=== PATIENT | female | born 1940 | race Caucasian/White ===

== ENCOUNTER 2017-06-27 02:51 | Emergency (ER) | payer MEDICARE, OTHER ==
[2017-06-27] MEDS: HYDROCODONE/APAP (5/325) TAB PO (04:23)
[2017-06-27] MEDS: ONDANSETRON (ODT) 4 MG TAB ODT (04:23)
[2017-06-27 04:35] LABS: URINE BLOOD (Dip) POC Negative (NEGATIVE); URINE KETONES (Dip) POC 1+ (NEGATIVE); URINE LEUKOCYTE EST (Dip) POC 1+ (NEGATIVE); URINE NITRITE (Dip) POC Negative (NEGATIVE); URINE TOTAL PROTEIN POC Trace (NEGATIVE)
[2017-06-27 05:16] LABS: ADD MAN DIFF? NO
[2017-06-27 05:18] LABS: BASOPHILS % 0.1 % (0.0-2.0); HEMATOCRIT 31.9 % (37.0-47.0); HEMOGLOBIN 11.3 g/dl (12.0-16.0); MEAN CORPUSCULAR HGB CONC 35.4 g/dl (32.0-37.0); MEAN CORPUSCULAR VOLUME 90.4 fl (82.0-101.0); MONOCYTE # 0.1 10^3/ul (0.3-0.9); MONOCYTES % 1.2 % (0.0-11.0); NEUTROPHIL # 10.9 10^3/ul (1.6-7.5); NEUTROPHILS % 90.4 % (39.0-77.0); PLATELET COUNT 334 10^3/UL (140-415); RED BLOOD COUNT 3.53 10^6/ul (4.20-5.40); RED CELL DISTRIBUTION WIDTH 12.6 % (11.5-14.5)
[2017-06-27 05:18] LABS: WHITE BLOOD COUNT 12.1 10^3/ul (4.8-10.8)
[2017-06-27 05:41] LABS: ALANINE AMINOTRANSFERASE 31 IU/L (13-69); ALBUMIN 3.7 g/dl (3.3-4.9); ALBUMIN/GLOBULIN RATIO 1.19; ALKALINE PHOSPHATASE 83 IU/L (42-121); ANION GAP 17 (8-16); ASPARTATE AMINO TRANSFERASE 24 IU/L (15-46); BILIRUBIN,INDIRECT 0.2 mg/dl (0-1.1); BILIRUBIN,TOTAL 0.2 mg/dl (0.2-1.3); BLOOD UREA NITROGEN 22 mg/dl (7-20); CALCIUM 9.1 mg/dl (8.4-10.2); CARBON DIOXIDE 23 mmol/L (21-31); CHLORIDE 91 mmol/L (97-110); CREATININE 0.77 mg/dl (0.44-1.00); GLUCOSE 258 mg/dl (70-220); LIPASE 90 U/L (23-300); POTASSIUM 4.7 mmol/L (3.5-5.1); SODIUM 126 mmol/L (135-144); TOTAL PROTEIN 6.8 g/dl (6.1-8.1)
== END 2017-06-27 06:00 | disposition home or self-care (01) ==
LOC: E/R 02:51
DX: N39.0 Urinary tract infection, site not specified (principal); M25.572 Pain in left ankle and joints of left foot; D64.9 Anemia, unspecified; I10 Essential (primary) hypertension; E11.9 Type 2 diabetes mellitus without complications; Z79.84 Long term (current) use of oral hypoglycemic drugs
CPT/HCPCS: 36415; 80053; 81003; 83690; 85025; 93971; 99284-25

== ENCOUNTER 2017-10-27 16:52 | Emergency (ER) | payer SELFPAY, OTHER, MEDICARE | END 2017-10-27 19:32 | disposition left against medical advice (07) | LOC: FTE 16:52 | DX: Z53.21 Procedure and treatment not carried out due to patient leaving prior to being seen by health care provider (principal) ==

== ENCOUNTER 2018-10-11 03:52 | Observation (INO) | payer MEDICARE, OTHER ==
[2018-10-11 04:25] LABS: ADD MAN DIFF? NO
[2018-10-11 04:28] LABS: WHITE BLOOD COUNT 8.3 10^3/ul (4.8-10.8)
[2018-10-11 04:28] LABS: BASOPHIL # 0.1 10^3/ul (0.0-0.1); BASOPHILS % 0.6 % (0.0-2.0); EOSINOPHILS # 0.2 10^3/ul (0.0-0.5); EOSINOPHILS % 2.9 % (0.0-7.0); HEMATOCRIT 34.8 % (37.0-47.0); HEMOGLOBIN 11.7 g/dl (12.0-16.0); LYMPHOCYTES # 4.3 10^3/ul (0.8-2.9); LYMPHOCYTES % 51.3 % (15.0-51.0); MEAN CORPUSCULAR HEMOGLOBIN 31.3 pg (29.0-33.0); MEAN CORPUSCULAR HGB CONC 33.6 g/dl (32.0-37.0); MEAN PLATELET VOLUME 10.2 fl (7.4-10.4); MONOCYTE # 0.5 10^3/ul (0.3-0.9); NEUTROPHIL # 3.3 10^3/ul (1.6-7.5); NEUTROPHILS % 39.1 % (39.0-77.0); PLATELET COUNT 239 10^3/UL (140-415); RED BLOOD COUNT 3.74 10^6/ul (4.20-5.40); RED CELL DISTRIBUTION WIDTH 12.7 % (11.5-14.5)
[2018-10-11] MEDS: hydrALAzine 20 MG INJ IV ×2 (04:40→07:03)
[2018-10-11 04:51] LABS: ANION GAP 9 (5-13); BLOOD UREA NITROGEN 10 mg/dl (7-20); CALCIUM 9.2 mg/dl (8.4-10.2); CARBON DIOXIDE 24 mmol/L (21-31); CHLORIDE 102 mmol/L (97-110); CREATININE 0.64 mg/dl (0.44-1.00); GLUCOSE 126 mg/dl (70-220); POTASSIUM 4.5 mmol/L (3.5-5.1); SODIUM 135 mmol/L (135-144)
[2018-10-11] MEDS ORDERED: ONDANSETRON 4 MG INJ IV ×2 (05:00→05:30)
[2018-10-11] MEDS ORDERED: ACETAMINOPHEN 325 MG TAB PO ×2 (05:00→05:30)
[2018-10-11 05:03] LABS: TROPONIN-I < 0.012 ng/ml (0.000-0.120)
[2018-10-11] MEDS ORDERED: NACL 0.9% 3 ML SYG IV (05:30)
[2018-10-11] MEDS ORDERED: ALBUTEROL/IPRATROPIUM (NEB) 3 ML AMP HHN (05:30)
[2018-10-11] MEDS ORDERED: GLUCAGON 1 MG INJ IM (05:30)
[2018-10-11] MEDS ORDERED: GLUCOSE GEL 15 GRAM TUBE BUCCAL (05:30)
[2018-10-11] MEDS ORDERED: HYDROCODONE/APAP (5/325) TAB PO (05:30)
[2018-10-11] MEDS ORDERED: NITROGLYCERIN (SL) 0.4 MG TAB SL (05:30)
[2018-10-11] MEDS ORDERED: GLUCOSE GEL 15 GRAM TUBE PO ×2 (05:30)
[2018-10-11] MEDS ORDERED: DEXTROSE 50% 50 ML SYRINGE IV ×2 (05:30)
[2018-10-11] MEDS: ACCU-CHEK XX ×2 (07:25→11:18)
[2018-10-11] MEDS: ASPIRIN 81 MG TAB PO (08:33)
[2018-10-11] MEDS: DOCUSATE SODIUM 100 MG CAP PO (08:33)
[2018-10-11] MEDS: LOSARTAN 50 MG TAB PO (08:34)
[2018-10-11] MEDS: metFORMIN 500 MG TAB PO (08:34)
[2018-10-11] MEDS: ALPRAZOLAM 0.25 MG TAB PO (08:35)
[2018-10-11] MEDS: HEPARIN 5,000 UNIT/1 ML VIAL SC (08:35)
[2018-10-11] MEDS: AMLODIPINE 10 MG TAB PO (11:18)
[2018-10-11 11:48] LABS: CREATINE KINASE 60 IU/L (23-200)
[2018-10-11 11:56] LABS: B-TYPE NATRIURETIC PEPTIDE 504 PG/ML (0-450)
[2018-10-11 11:58] LABS: CK INDEX 0.9; CK-MB 0.56 ng/ml (0.0-2.4); TROPONIN-I < 0.012 ng/ml (0.000-0.120)
[2018-10-11] MEDS ORDERED: ATORVASTATIN 20 MG TAB PO (21:00)
== END 2018-10-11 16:00 | disposition home or self-care (01) ==
LOC: E/R 03:52 → TEL 04:56
DX: R07.89 Other chest pain (principal); I16.0 Hypertensive urgency; I10 Essential (primary) hypertension; E11.9 Type 2 diabetes mellitus without complications; Z79.84 Long term (current) use of oral hypoglycemic drugs
CPT/HCPCS: 36415; 71045; 80048; 82550; 82553; 82962; 83880; 84484; 85025; 93005; 93306; 96374; 99217; 99285-25

== ENCOUNTER 2018-11-20 23:05 | Emergency (ER) | payer MEDICARE, OTHER ==
[2018-11-21] MEDS: ACETAMINOPHEN 500 MG TAB PO (00:57)
== END 2018-11-21 02:19 | disposition home or self-care (01) ==
LOC: E/R 23:05
DX: I10 Essential (primary) hypertension (principal); R51 Headache; Z79.84 Long term (current) use of oral hypoglycemic drugs
CPT/HCPCS: 70450; 99284-25